=== PATIENT | female | born 1955 | race Caucasian/White ===

== ENCOUNTER 2019-02-23 09:31 | Outpatient (REF) | payer OTHER, SELFPAY ==
[2019-02-23 12:29] LABS: ALT 24 U/L (12-78); AST 21 U/L (15-37); Alkaline Phosphatase 83 U/L (46-116); Anion Gap 8.9 mmol/L (3-11); BUN 18 mg/dL (7-18); Bilirubin, Total 0.4 mg/dL (0.2-1.0); CO2 29.1 mmol/L (21.0-32.0); Calcium 9.5 mg/dL (8.5-10.1); Chloride 105 mmol/L (98-107); Glucose 75 mg/dL (70-100); Potassium 4.1 mmol/L (3.5-5.1); Sodium 143 mmol/L (136-145); TSH (W/Ref FT4) 2.39 uIU/mL (0.358-3.74); Total Protein 7.4 g/dL (6.4-8.2)
[2019-02-23 15:43] LABS: Calculated LDL 82; Cholesterol 156 mg/dL (50-200); HDL Cholesterol 63 mg/dL (40-60); Triglyceride 57 mg/dL (30-150)
[2019-02-23 16:05] LABS: Vitamin D 25 Total 68.4 ng/ml (30-100)
== END 2019-02-23 09:51 ==
LOC: NCHCN 09:31
PROVIDERS: PCP Nurse Practitioner; Visit Provider Nurse Practitioner
DX: R03.0 Elevated blood-pressure reading, without diagnosis of hypertension (principal); M81.0 Age-related osteoporosis without current pathological fracture
CPT/HCPCS: 80053; 80061; 82306; 83721; 84443

== ENCOUNTER 2019-03-12 00:30 | Outpatient (CLI) | payer OTHER, SELFPAY ==
--- NOTE | 2019-03-12 08:25 | DI.MAMMO_ITS ---
SYMPTOM/DIAGNOSIS: SCREENING, Z12.39 MAMMOGRAMS: Mammograms were interpreted according to the usual protocol including computer analysis with CAD system, tomosynthesis and C view imaging. Comparison is with the prior examinations. No suspicious masses or microcalcifications are seen. There is no definite evidence of malignancy. IMPRESSION: Negative mammogram. Routine screening is recommended. Category 1, breast density B. MQSA ASSESSMENT OF FINDINGS: Negative. Category 1. Patient will receive a letter notifying them of these results. BI-RADS category B. There are scattered areas of fibroglandular density.
== END 2019-03-12 00:50 ==
PROVIDERS: PCP Nurse Practitioner; Visit Provider Nurse Practitioner
DX: Z12.31 Encounter for screening mammogram for malignant neoplasm of breast (principal)
CPT/HCPCS: 77063; 77067

== ENCOUNTER 2020-04-05 20:43 | Outpatient (REF) | payer OTHER, SELFPAY ==
[2020-04-05 18:36] LABS: HCT 40.8 % (36.0-46.0); HGB 13.9 g/dL (11.2-15.7); MCH 31.8 pg (27.0-33.0); MCHC 34.1 % (32.0-36.0); MCV 93.4 fL (80-95); MPV 9.8 fL (8.0-11.0); Platelet Count 260 10^3/uL (130-400); RBC 4.37 10^6/uL (3.93-5.22); RDW 12.3 % (11.7-14.6); RDW-SD 42.6 fL
[2020-04-05 19:11] LABS: ALT 22 U/L (14-59); AST 17 U/L (15-37); Albumin 3.9 g/dL (3.4-5.0); Alkaline Phosphatase 70 U/L (46-116); BUN 17 mg/dL (7-18); Bilirubin, Total 0.4 mg/dL (0.2-1.0); CREATININE 0.82 mg/dL (0.55-1.02); Calcium 9.1 mg/dL (8.5-10.1); Chloride 106 mmol/L (98-107); Glucose 88 mg/dL (74-106); Potassium 4.5 mmol/L (3.5-5.1); Sodium 141 mmol/L (136-145); TSH (W/Ref FT4) 2.19 uIU/mL (0.36-3.74); Total Protein 6.9 g/dL (6.4-8.2)
[2020-04-06 08:38] LABS: Abs Immature Grans 0.01 10^3/uL (0.0-0.06); Absolute Basophil Count 0.02 10^3/uL (0.0-0.2); Absolute Eosinophil Count 0.09 10^3/uL (0.0-0.7); Absolute Lymphocyte Count 0.97 10^3/uL (1.2-3.4); Absolute Monocyte Count 0.41 10^3/uL (0.1-0.8); Absolute Neutrophil Count 2.43 10^3/uL (1.2-6.7); Basophils % 0.5; Eosinophils % 2.3; Immature Grans % 0.3; Lymphocytes % 24.7; Monocytes % 10.4; Neutrophils % 61.8
== END 2020-04-05 21:03 ==
LOC: NCHCN 20:43
PROVIDERS: PCP Nurse Practitioner Family; Visit Provider Nurse Practitioner Family
DX: R00.2 Palpitations (principal); N39.0 Urinary tract infection, site not specified; R68.89 Other general symptoms and signs
CPT/HCPCS: 80053; 85027; 87077; 84443; 85007; 87086; 87186

== ENCOUNTER 2020-04-11 03:09 | Outpatient (CLI) | payer OTHER, SELFPAY ==
--- NOTE | 2020-05-05 09:21 | ZIOP_ITS ---
Date of service: 05/05/20 Time of Service: 09:21 [employer] Referring Provider:: Dr Heraclio Fox Indications:: Palpitations Note: The patient was monitored for a total period of 11 days, 9 hours for indication of palpitations Predominant rhythm was sinus. Average heart rate was 84 bpm. Minimum heart rate was 57 and maximum 164 There were very rare ventricular ectopic beats and one couplet There were very rare atrial premature beats There were 3 atrial runs ranging from 8 beats in duration up to 24 seconds. These appeared asymptomatic Patient symptoms correlated with sinus rhythm, sinus tachycardia
== END 2020-04-11 03:29 ==
PROVIDERS: PCP Nurse Practitioner Family; Visit Provider Nurse Practitioner Family
DX: R00.2 Palpitations (principal); I49.3 Ventricular premature depolarization; I49.1 Atrial premature depolarization
CPT/HCPCS: 0296T

== ENCOUNTER 2020-09-05 19:02 | Outpatient (REF) | payer OTHER, SELFPAY ==
[2020-09-06 21:24] LABS: COVID-19 RT-PCR Result NEGATIVE (Negative)
== END 2020-09-05 19:22 ==
LOC: NCHCN 19:02
PROVIDERS: PCP Nurse Practitioner Family; Visit Provider Nurse Practitioner Family
DX: J02.9 Acute pharyngitis, unspecified (principal)
CPT/HCPCS: U0003

== ENCOUNTER 2020-10-17 01:36 | Outpatient (CLI) | payer OTHER, SELFPAY ==
[2020-10-18 11:51] LABS: COVID-19 RT-PCR UVMMC Result Negative (Negative)
== END 2020-10-17 01:37 | disposition home or self-care (01) ==
LOC: LBO 01:36
PROVIDERS: PCP Nurse Practitioner Family; Visit Provider Family Medicine
DX: Z20.828 Contact with and (suspected) exposure to other viral communicable diseases (principal); Z01.818 Encounter for other preprocedural examination
CPT/HCPCS: U0003

== ENCOUNTER 2020-10-20 00:42 | Outpatient (CLI) | payer OTHER, SELFPAY ==
--- NOTE | 2020-10-20 09:00 | ETT_ITS ---
APPROVED REPORT Exam: Exercise Treadmill Patient Location: Out-Patient Room/Bed: Stress Nurse: Kira Long RN Ordering Provider:SUSIEParag MATHEWS, Contact Number: [phone] BMI: 27.45 Baseline Rhythm: Sinus Rhythm Indications: Recurrent palpitations Medical History Medical History: Sciatica Cardiac Medications: celebrex, wellbutrin Allergies: NKA Cardiac Risk Factors: Family hx Previous Cardiac Procedures: None Pretest Chest Pain Characteristics: None Exercise History: Sedentary Physical Disabilities: None Lung Sounds: Clear to auscultation Heart Sounds: Regular Stress Test Details Test: Exercise stress testing was performed using a Woody protocol. Rest Stress HR Resting HR Supine: 79 bpm Max Heart Rate (APMHR): 158 bpm Resting HR Standin bpm Target HR (85% APMHR): 134 bpm Max HR Achieved: 152 bpm % of APMHR: 96 Recovery HR: 99 bpm HR response to stress: Normal HR response to stress BP Resting BP Supine: 144/98 mmHg Resting BP Standin/92 mmHg Max BP: 178/80 mmHg Recovery BP: 150/88 mmHg BP response to stress: Normal blood pressure response to stress. ECG Resting ECG: Sinus Rhythm Ectopy: None Stress ECG: Sinus Tachycardia ST Change: No significant ST segment changes noted Arrhythmia: None Recovery ECG: Sinus Rhythm Recovery ST Change: No significant ST segment changes noted Recovery Arrhythmia: None Clinical Reason for Termination: Fatigue, back pain Stress Symptoms: General Fatigue Exercise duration: 7 min55 sec Highest Stage Reached: Stage 3: 3.4 mph at 14% grade. Exercise capacity: 10.02 METs Tapia Treadmill Score: 8 Rate Pressure Product: [id number] Stress ECG Conclusion 1. The patient exercised for 8 minutes (10 METS). Exercise was stopped due to fatigue. 2. The patient's blood pressure and heart rate augmented as expected with exercise. 3. There were no symptoms suggestive of ischemia. 4. There is no evidence of ischemia on the ECG portion exam. Tapia Treadmill Score is 8 which is Low risk.
== END 2020-10-20 00:43 ==
LOC: DI 00:42
PROVIDERS: PCP Nurse Practitioner Family; Visit Provider Nurse Practitioner
DX: R00.2 Palpitations (principal); Z01.810 Encounter for preprocedural cardiovascular examination
CPT/HCPCS: 93017

== ENCOUNTER 2020-10-20 00:45 | Outpatient (CLI) | payer OTHER, SELFPAY ==
--- NOTE | 2020-10-20 08:26 | DI.MAMMO_ITS ---
EXAM: MG MAMMO SCREENING CLINICAL HISTORY: SCREENING, Z12.39, FAMILY H/O BREAST CA,Z80.3. TECHNIQUE: Bilateral full field digital CC and MLO mammographic images were obtained with 3D tomosyn thesis and utilizing computer aided detection (CAD). COMPARISON: Prior mammograms dating back to 2014, the most recent being July 2019. FINDINGS: No new significant radiograph findings in the right breast. In the left breast there are microcalcif ications in the upper-outer quadrant which are slowly increasing but remain benign appearance. No new spiculated masses. There is no significant architectural distortion nor skin thickening-retr action. IMPRESSION: Benign findings. No radiographic evidence of malignancy. BI-RADS Category 2 - Benign Findings Breast Density - Category B - Scattered areas of fibroglandular density Breast density Category C or D implies that the patient has dense breast tissue. Dense breast tissue can make it harder to find cancer on a mammogram. Dense breast tissue is also associated with an incr eased risk of breast cancer. This information about the result of the mammogram report was provided to the patient to raise their awareness. Use this report when you speak with the patient about their risks for breast cancer, which includes their family history. At that time, you may recommend additional screening tests (Ultrasoun d or MRI) as these tests may add significant information. A negative radiographic report should not delay biopsy if a dominant or clinically suspicious mass is present. Up to ten percent of cancers are not identified on mammography. A negative report may reinforce clinical impression. Adenosis and dense breasts may obscure an underlying neoplasm. False positive reports average 6 to 10%. Patient will receive a letter notifying them of these results.
== END 2020-10-20 00:46 ==
LOC: DI 00:45
PROVIDERS: PCP Nurse Practitioner Family; Visit Provider Nurse Practitioner
DX: Z12.31 Encounter for screening mammogram for malignant neoplasm of breast (principal); Z80.3 Family history of malignant neoplasm of breast
CPT/HCPCS: 77063; 77067

== ENCOUNTER 2021-06-07 02:11 | Outpatient (CLI) | payer OTHER, SELFPAY ==
[2021-06-07 09:26] LABS: Source Nasal/Nares
[2021-06-07 12:04] LABS: COVID-19 PCR Negative (Negative)
== END 2021-06-07 02:12 | disposition home or self-care (01) ==
LOC: LBO 02:12
PROVIDERS: PCP Nurse Practitioner Family; Visit Provider Surgery
DX: Z20.822 Contact with and (suspected) exposure to COVID-19 (principal); Z01.818 Encounter for other preprocedural examination
CPT/HCPCS: 87635

== ENCOUNTER 2021-06-09 10:02 | Day surgery (SDC) | payer OTHER, SELFPAY ==
--- NOTE | 2021-06-08 21:48 | W.COLOREPORT ---
Colonoscopy Report Date of procedure: 06/09/21 Pre-op diagnosis general: hx of polyps Surgeon: Marichuy Barnett Anesthesia Type: General:No Airway Prep: Miralax/Dulcolax Procedure Description: After informed consent was obtained the patient was taken to the procedure room and placed in a left decubitous position. Monitors were applied and a time out was done. The patients name, date of , procedure, allergies to medications and metal in their body was reviewed. The patient was then sedated. Once sedated and comfortable a rectal exam was done. External exam was normal. Internal exam revealed a normal sphincter tone and no palpable masses. Patient still had formed stool in her colon and visualization was extremely difficult. The scope continued to become clogged with vegetable matter. It is unclear whether it reached the cecum or the right flexure. The procedure was abandoned for patient safety. No large masses were visualized today. The colon was obscured by liquid stool that coated the aldridge and fluid filled the lumen by at least 50%. There was also at least 25% of the stool is still formed. Patient should have a repeat scope with a 2-day prep. She does have a longstanding history of constipation The patient tolerated the procedure well and there were no immediate complications. Follow up: The patient should follow up in the office in 2 weeks time.
--- NOTE | 2021-06-08 21:49 | ENDO_ITS ---
Date of service: 06/09/21 Endoscopy Report DATE OF PROCEDURE: 06/09/21 PRE-OP DIAGNOSIS: globus sensation POST-OP DIAGNOSIS: other (hiatal hernia) SURGEON: Marichuy Barnett ANESTHESIA TYPE: General:No Airway ESTIMATED BLOOD LOSS: 1 PATHOLOGY: other COMPLICATIONS: None DISPOSITION: same day PROCEDURE DESCRIPTION: After informed consent was obtained the patient was take to the procedure room and placed in a supine position. Monitors were applied and a time out was done. The patients name, date of , procedure type, allergies to medications and metal in their body was reviewed. A bite block was placed and the patient was sedated. Once sedated and comfortable the gastroscope was advanced through the oropharynx which was grossly normal into the esophagus. The proximal and mid-esophagus were normal. In the distal esophagus there was no: Esophageal erosion, varices, diverticula or stricture apparent. The scope was advanced into the stomach and through the pylorus into the 3rd portion of the duodenum. The duodenum was noted to be normal. Biopsies were done, all specimens are retrieved and no bleeding is noted the scope was retracted back into the stomach and biopsies were done to rule out H. pylori. There were ulcers or gastritis ulcers. The scope was retroflexed. The cardia and fundus were noted to be normal. There ia a patulous hiatus. There is no slight signs of any esophageal sliding. The scope was retracted back into the esophagus and biopsies were done of the GE junction to rule out Schaefer's. The Z line was regular. The scope was removed and the patient was woken up and taken back to [facility] in stable condition. She has a mildly patulous hiatus. She has a slight hiatal hernia. Otherwise things looked pretty unremarkable. Biopsies were taken. All specimens are retrieved and no bleeding is noted. Follow up: 2 weeks to review biopsy results, see if she tolerates the new PPI, and to reschedule colonoscopy.
--- NOTE | 2021-06-08 21:50 | PDOC.DSDIS_ITS ---
Discharge Plan Disposition Patient Disposition: HOME Condition: Good Discharge Details Reason For Visit: stomach and colon scope Attending Provider: Marichuy Barnett Primary Care Provider: Dimple Lamar Home Meds and New Rx's Prescriptions: New pantoprazole [Protonix] 40 mg tablet,delayed release (DR/EC) 40 mg PO DAILY Qty: 30 RF: 12 Continued cholecalciferol (vitamin D3) [Vitamin D3] 1,000 UNIT capsule 1,000 unit PO DAILY RF: 0 alprazolam [Xanax] 0.5 mg tablet 0.5 mg PO QHS PRNRF: 0 bupropion HCl [Wellbutrin SR] 150 mg tablet sustained-release 12 hr 150 mg PO BID RF: 0 sumatriptan succinate [Imitrex] 100 mg tablet See Rx Instructions PO .COMPLEX RF: 0 dbfbwaeztq-boccwpovfzzmz-dbxo 1 TAB tablet 2 tab PO PRN PRN (Reason: Headache) RF: 0 multivitamin 1 EACH capsule 1 tab PO DAILY RF: 0 Discontinued bisacodyl [Dulcolax (bisacodyl)] 5 mg tablet,delayed release (DR/EC) 5 mg PO ONCE Qty: 4 RF: 0 polyethylene glycol 3350 17 gram/dose powder 238 g PO ONCE Qty: 238 RF: 0 Discharge Instructions Additional Instructions: DSU Colonoscopy Post- Op Instructions Instructions for Everyone who is given Anesthesia: For your safety, please do the following for the next twenty-four (24) hours: *Do Not operate a motor vehicle (car, truck, motorcycle, etc.) *Do Not drink alcoholic beverages or use any recreational drugs for the first 24 hours or while taking pain medications. The medications in your body may have a reaction that can be dangerous. *Do Not make any important decisions or sign any important papers. Findings: Stomach: small hiatal hernia Continue with lifestyle modifications: no alcohol, tobacco products, Aspirin or NSAID's (ibuprofen, Motrin, Naprosyn, aleve, etc), soda pop/any carbonated beverages, caffeine (including tea & chocolate), and acidic foods, (tomatoes, citrus, onions, peppermints) spicy or fried/fatty foods. Do not lie down for 30 minutes after eating, and do not eat 2 hours prior to bedtime. Avoid wearing tight fitting clothing/ belts Rx- protonix Colon: prep was incomplete and will need to repeat w/ a 2-day prep. Follow up: Dr. Barnett in 2 wk 1. No lifting over 20 pounds or strenuous activity for the first 24 hours after your procedure. After 24 hours there are no restrictions on your activity but you may feel fatigued for a few days. 2. After you arrive home you may have a light meal and return to your normal diet as you can tolerate it without feeling sick to your stomach. 3. You may have a bloated, gaseous feeling in your belly (abdomen) after a colonoscopy. Passing gas and belching will help. Walking or lying down on your left side with your knees flexed may relieve the discomfort. Call the office at [phone] (Office) or [phone] (Hospital) right away if you notice any of the following: a.Vomiting of blood or ?coffee ground stools?. b.Rectal bleeding 1Tbsp, blood clots or continuous bleeding. c.Severe belly (abdominal) pain. d.A hard distended belly (abdomen) and an inability to pass gas. 4. Please don?t expect to have a normal BM (bowel movement) for 2-3 days after your procedure. 5. If there are questions regarding the findings of your procedure, please contact your doctor 6. If you are unable to contact your doctor with a problem, contact the hospital at [phone]. 7. Continue all your regular medications unless directed otherwise. I understand the above instructions and have no questions. Signature of Patient or Adult Escort Name of Responsible Adult Escort Signature of Nurse Date/Time Activity:: see above Diet:: see above Discharge Orders Discharge Orders: Discharge Order (Routine); Ordered 06/09/21 Ordered By: Marichuy Barnett DS: Diagnosis Discharge Diagnosis (1) Hiatal hernia: Status: Chronic
[2021-06-09 10:20] VITALS: BP 174/74; PULSE 75; RESP 16; TEMP 36.5; O2SAT 99
--- NOTE | 2021-06-09 10:27 | W.ANESPRE ---
General Info Date of Service Date Performed: 06/09/21 Height: 5 ft 5 in Weight: 71.3 kg Body Mass Index (BMI): 26.2 Surgical Procedure: Operation Date: 06/09/21 10:35 Proposed Procedures Side Surgeon p Colonoscopy/Gastroscopy Marichuy Barnett, DO Meds Allergies and Home Medications Allergies Allergy/AdvReac Type Severity Reaction Status Date / Time No Known Allergies Allergy Verified 06/09/21 10:24 Home Medication Medication Instructions Recorded aanmxwxcpy-xrsdnjzyfslpe-oarx 2 tab PO PRN PRN 07/22/13 multivitamin 1 tab PO DAILY 06/08/15 cholecalciferol (vitamin D3) 1,000 unit PO DAILY 09/23/15 [Vitamin D3] alprazolam 0.5 mg tablet 0.5 mg PO QHS PRN 11/30/20 bupropion HCl 150 mg tablet,12 hr 150 mg PO BID 11/30/20 sustained-release sumatriptan succinate 100 mg tablet See Rx Instructions PO .COMPLEX 11/30/20 bisacodyl 5 mg tablet,delayed 5 mg PO ONCE #4 tab 05/18/21 release polyethylene glycol 3350 17 238 g PO ONCE #238 g 05/18/21 gram/dose oral powder Current Visit Medications: Current Medications Generic Name Dose Route Start Last Admin Trade Name Freq PRN Reason Stop Dose Admin Ringer's Solution 1,000 mls @ 80 mls/hr 06/09/21 06:00 IV 07/08/21 23:59 INFUSION SUPRIYA IV Miscellaneous Supplies 1 each 06/09/21 06:00 Iv Access IV 07/08/21 23:59 DIRECTED SUPRIYA Sodium Chloride 0 ml 06/09/21 06:00 Normal Saline Flush 10 Ml Syr IV 07/08/21 23:59 PRN PRN Sodium Chloride 0 ml 06/09/21 06:00 Normal Saline 10 Ml Vial IJ 07/08/21 23:59 DIRECTED PRN Sterile Water 0 ml 06/09/21 06:00 Water,Injection,Sterile 10 Ml Vial IJ 07/08/21 23:59 DIRECTED PRN PFSH Active Problems Active Problems: Problem Status Onset Code Screening for colon cancer Z12.11 Globus sensation R09.89 Postnasal drip R09.82 Migraine G43.909 Cervicalgia M54.2 Tinnitus H93.19 Tinea pedis B35.3 At risk for sleep apnea Z91.89 Dysphagia R13.10 Medical History Medical History Anxiety At risk for sleep apnea Cervicalgia Constipation Depression Dysphagia Family history of breast cancer Family history of coronary arteriosclerosis GERD (gastroesophageal reflux disease) Hip pain, right Impingement syndrome of left shoulder Migraine Obesity Osteopenia Palpitations Pt. states this was 2020-pt. had work-up which came back negative. PT. states since then palpatations have been non existent. Preop examination Preoperative cardiovascular examination Sciatica Screening for breast cancer Tinea pedis Tinnitus Surgical History Surgical History Appendectomy Cholecystectomy History of left hip replacement Pt states it is a Right total hip replacement Ligation of fallopian tube Tobacco Smoking/Tobacco Use Status: Never Alcohol Alcohol Intake: current Alcohol intake frequency: a few times a week Alcohol type: wine Substance Use Substance use: Never Substance use type: does not use Vital Signs and Lab Results Vital Signs Most Recent Vital Signs in EMR: Most Recent Vital Signs Temp Pulse Resp BP Pulse Ox 36.5 C 75 16 174/74 H 99 06/09/21 10:20 06/09/21 10:20 06/09/21 10:20 06/09/21 10:20 06/09/21 10:20 Lab Results Blood Type / Crossmatch: No Data to Display Complete Blood Count: No Data to Display Complete Metabolic Panel: No Data to Display Liver Function Panel: No Data to Display Coagulation Panel: No Data to Display Cardiac Panel: No Data to Display Arterial Blood Gas: No Data to Display Venous Blood Gas: No Data to Display Pancreas Panel: No Data to Display Thyroid Panel: No Data to Display Infectious Disease: Coronavirus (COVID-19)(PCR) Negative (Negative) 06/07/21 08:39 06/07/21 Coronavirus 2019 Source Nasal/Nares 06/07/21 08:39 06/07/21 Blood Cultures: No Data to Display Toxicology Panel: No Data to Display Imaging and Studies Imaging and Studies Stress Test Summary: DATE/TIME OF SERVICE: 10/20/20 ADMITTING PROVIDER: SANTHOSH PORTILLO MD Exam: Exercise Treadmill Indications: Recurrent palpitations Stress ECG Conclusion 1. The patient exercised for 8 minutes (10 METS). Exercise was stopped due to fatigue. 2. The patient's blood pressure and heart rate augmented as expected with exercise. 3. There were no symptoms suggestive of ischemia. 4. There is no evidence of ischemia on the ECG portion exam. Tapia Treadmill Score is 8 which is Low risk. Anesthesia Assessment and Plan Anesthesia History Personal History: No History of Anesthesia Complications Family History: No Family History of Anesthesia Complications Exercise Tolerance Exercise Tolerance: Metabolic Equivalents>4 Pertinent Negatives Pertinent Negatives: No Symptoms of GERD Cardiac & Pulmonary Exam Cardiac Exam: Normal S1/S2 Heart Sounds Pulmonary Exam: Clear Bilateral Breath Sounds Airway Exam Known Difficult Airway: No Mallampati Class: 2 Mouth Opening: Normal (> 3cm) Thyromental Distance: Greater than 3 cm Neck Range of Motion: Full ROM Neck Circumference: Normal Teeth Condition: Normal Dentition ASA Classification ASA Score: ASA 2 Emergency Case?: No NPO Status NPO Status: NPO Clears >2 hours, Solids >8 hours Anesthesia Plan Resuscitation Status: Full Code Anesthesia Technique: General Anesthesia Airway Planned: Natural Airway Monitors Used: Standard Monitors
[2021-06-09 10:32] VITALS: BMI 26.2
[2021-06-09] MEDS: Lactated Ringers 1,000 ML 80 ML IV (10:34)
--- NOTE | 2021-06-09 11:57 | BOWEL_PTH ---
PATIENT: Cesilia Pierce LOC: [facility] U#:[id number] AGE/SX: 65/F ROOM: RE06/09/[address]: Marichuy Barnett : 1955 BED: DIS: 06/09/2021 SPEC #: [id number] RECD: 06/09/21 15:24 STATUS: BELLA REZay #: [id number] RAUL: 06/09/21 11:[address]: Marichuy Barnett DEPT: Surgical Specimen RECD BY: Diane Calderón ENTERED: 06/09/21 15:27 SP TYPE: Bowel OTHR DR: Dimple Lamar Tissues: 1 - BIOPSY BOWEL 2 - BIOPSY BOWEL 3 - STOMACH BIOPSY 4 - ESOPHAGUS BIOPSY 5 - ESOPHAGUS BIOPSY Procedures: GROSS AND MICRO LEVEL 4 Comments: [id number]
[2021-06-09 12:25] VITALS: BP 136/67; PULSE 76; RESP 18; TEMP 36.1; O2SAT 96
--- NOTE | 2021-06-09 12:27 | W.ANESPOSTOP ---
Postoperative Evaluation Date, Time and Location Date Performed: 06/09/21 Time Performed: 12:27 Patient Location: Day Surgery Unit Vital Signs Most Recent Imported Vital Signs: Most Recent Vital Signs Temp Pulse Resp BP Pulse Ox 36.1 C L 76 18 136/67 96 06/09/21 12:25 06/09/21 12:25 06/09/21 12:25 06/09/21 12:25 06/09/21 12:25 Most Recent Manually Entered Vital Signs: Adult Blood Pressure: 136/67 Heart Rate: 76 Respirations: 18 Oxygen Saturation (%): 96 Temperature (C): 36.1 C Pain Score (0-10 Scale): 0 Pain Score Most Recent Pain Score: Most Recent Pain Score Pain Level 0 06/09/21 12:25 Assessment Mental Status: Arousable with meaningful communication Airway and Respiratory Function: Patent airway with normal (patient baseline) respiratory exam Cardiovascular Function: Hemodynamically Stable Hydration Status: Adequately Hydrated Nausea & Vomiting: No Nausea or Vomiting Pain: Pt. Denies Any Pain Peripheral Nerve Block: Patient did not receive a nerve block
[2021-06-09 12:29] VITALS: BP 136/67; PULSE 76; RESP 18; TEMPC 36.1; O2SAT 96
[2021-06-09 13:00] VITALS: BP 156/88; PULSE 77; RESP 18; TEMP 36.4; O2SAT 98
== END 2021-06-09 14:15 | disposition home or self-care (01) ==
PROVIDERS: PCP Nurse Practitioner; Visit Provider Surgery
PROC: (CPT 43239; principal; 2021-06-09 10:30)
DX: K44.9 Diaphragmatic hernia without obstruction or gangrene (principal); Z12.11 Encounter for screening for malignant neoplasm of colon; Z86.010 Personal history of colon polyps; K59.00 Constipation, unspecified
CPT/HCPCS: 43239; 45378; 88305; J2704

== ENCOUNTER 2021-11-01 18:45 | Outpatient (REF) | payer BC, SELFPAY ==
[2021-11-01 19:39] LABS: HGB 13.7 g/dL (11.2-15.7); MCH 30.9 pg (27.0-33.0); MCHC 33.4 % (32.0-36.0); MCV 92.6 fL (80-95); MPV 9.8 fL (8.0-11.0); Platelet Count 253 10^3/uL (130-400); RBC 4.43 10^6/uL (3.93-5.22); RDW 11.9 % (11.7-14.6); WBC 8.55 10^3/uL (4.4-10.8)
[2021-11-01 19:54] LABS: ALT 30 U/L (14-59); AST 24 U/L (15-37); Albumin 4.1 g/dL (3.4-5.0); Alkaline Phosphatase 87 U/L (46-116); Anion Gap 9.1 mmol/L (3-11); BUN 18 mg/dL (7-18); Bilirubin, Total 0.4 mg/dL (0.2-1.0); CO2 27.9 mmol/L (21.0-32.0); CREATININE 0.8 mg/dL (0.55-1.02); Calcium 9.3 mg/dL (8.5-10.1); Chloride 103 mmol/L (98-107); Glucose 87 mg/dL (74-106); Lipase 59 U/L (73-393); Potassium 4.2 mmol/L (3.5-5.1); Sodium 140 mmol/L (136-145); Total Protein 7.4 g/dL (6.4-8.2)
[2021-11-01 21:05] LABS: Bilirubin Negative (Negative); Blood Trace-intact (Negative); Clarity Clear (Clear); Glucose 250 mg/dL (Negative); Ketones Negative (Negative); Leukocyte Esterase Trace (Negative); Nitrite Positive (Negative); Specific Gravity 1.025 (1.005-1.025); Urobilinogen 0.2 EU/dL (Up TO 0.2)
[2021-11-01 21:44] LABS: Bacteria Many HPF (Negative); C & S Indicated? Yes; Casts Negative LPF (Negative); Crystals Negative HPF (Negative); Epithelial Cells Negative HPF (Negative); Mucus Negative (Negative); Other Cells Negative (Negative); RBC Negative HPF (0-2)
== END 2021-11-01 18:46 | disposition home or self-care (01) ==
LOC: NCHCN 18:45
PROVIDERS: PCP Nurse Practitioner; Visit Provider Nurse Practitioner Family
DX: K21.9 Gastro-esophageal reflux disease without esophagitis (principal); K59.00 Constipation, unspecified; R10.10 Upper abdominal pain, unspecified; R14.0 Abdominal distension (gaseous)
CPT/HCPCS: 80053; 83690; 85027; 87077; 81003; 81015; 87086; 87186

== ENCOUNTER → 2022-05-29 01:31 | Outpatient (CLI) | payer BC, SELFPAY ==
--- NOTE | 2022-05-29 08:37 | DI.MAMMO_ITS ---
Exam(s) MAMMO SCREENING EXAM: MAMMO SCREENING CLINICAL HISTORY: SCREENING, Z12.39, FAMILY H/O BREAST CA,Z80.3 TECHNIQUE: Bilateral full field digital CC and MLO mammographic images were obtained with 3D tomosyn thesis and utilizing computer aided detection (CAD). COMPARISON: Available for comparison. FINDINGS: Masses/Architectural Distortion: None seen. Microcalcifications: No suspicious pleomorphic-type are seen. Skin Thickening/Nipple Retraction: None. IMPRESSION: 1. No significant interval change with no specific features of malignancy noted. 2. Unless there is more urgent need, screening mammography is recommended, as per [employer] guidelines. BI-RADS Category 1 - Negative Breast Density - Category B - Scattered areas of fibroglandular density Breast density category C or D implies that the patient has dense breast tissue. Dense breast tissue is very common and is not abnormal but dense breast tissue can make it harder to find cancer on a ma mmogram. Also, dense breast tissue may increase their breast cancer risk. This information about the result of the mammogram report was provided to the patient to raise their awareness. Use this report when you speak with the patient about their risks for breast cancer, which includes their family hist ory. At that time, you may recommend for more screening tests (Ultrasound or MRI) as they might be us eful based on their risk. A negative radiographic report should not delay biopsy if a dominant or clinically suspicious mass is present. Up to ten percent of cancers are not identified on mammography. A negative report may reinforce clinical impression. Adenosis and dense breasts may obscure an underlying neoplasm. False positive reports average 6 to 10%. Patient will receive a letter notifying them of these results.
== END ==
PROVIDERS: PCP Nurse Practitioner; Visit Provider Nurse Practitioner Family
DX: Z12.31 Encounter for screening mammogram for malignant neoplasm of breast (principal); Z80.3 Family history of malignant neoplasm of breast
CPT/HCPCS: 77063; 77067

== ENCOUNTER 2023-02-06 10:16 | Outpatient (REF) | payer BC, SELFPAY ==
--- NOTE | 2023-02-06 09:00 | PAPFT_PTH ---
PATIENT: Cesilia Pierce LOC: [facility] U#:[id number] AGE/SX: 67/F ROOM: RE02/06/[address]: Cass Bermeo MD : 1955 BED: DIS: 02/06/2023 SPEC #: [id number] RECD: 02/06/23 17:56 STATUS: BELLA REZay #: [id number] RAUL: 02/06/23 09:[address]: Cass Bermeo DEPT: [facility] Cytology RECD BY: Diane Calderón ENTERED: 02/06/23 17:56 SP TYPE: PAPFT JEET DR: LIONEL RAMIRES NP Tissues: 1 - CX/ENDOCX FOR PAP SMEARS Procedures: PAP THIN PREP/[facility] Screening HPV DNA PROBE Comments: [id number]
== END 2023-02-06 10:17 | disposition home or self-care (01) ==
LOC: LBN 10:16
PROVIDERS: PCP Nurse Practitioner Family; Visit Provider Obstetrics & Gynecology
DX: Z12.4 Encounter for screening for malignant neoplasm of cervix (principal); Z11.51 Encounter for screening for human papillomavirus (HPV)
CPT/HCPCS: 88142; 87624

== ENCOUNTER 2023-02-13 20:02 | Outpatient (REF) | payer BC, SELFPAY ==
[2023-02-13 21:05] LABS: Abs Immature Grans 0.01 10^3/uL (0.0-0.06); Absolute Basophil Count 0.03 10^3/uL (0.0-0.2); Absolute Lymphocyte Count 1.54 10^3/uL (1.2-3.4); Absolute Monocyte Count 0.35 10^3/uL (0.1-0.8); Absolute Neutrophil Count 3.05 10^3/uL (1.2-6.7); Basophils % 0.6; HCT 40.1 % (36.0-46.0); HGB 13.6 g/dL (11.2-15.7); Immature Grans % 0.2; Lymphocytes % 30.3; MCH 31.6 pg (27.0-33.0); MCHC 33.9 % (32.0-36.0); MCV 93 fL (80-95); MPV 9.7 fL (8.0-11.0); Monocytes % 6.9; Platelet Count 247 10^3/uL (130-400); RBC 4.31 10^6/uL (3.93-5.22); RDW 11.8 % (11.7-14.6); RDW-SD 40.7 fL; WBC 5.08 10^3/uL (4.4-10.8)
[2023-02-13 21:40] LABS: ALT 23 U/L (14-59); AST 19 U/L (15-37); Albumin 3.9 g/dL (3.4-5.0); Alkaline Phosphatase 76 U/L (46-116); Anion Gap 8.5 mmol/L (3-11); BUN 19 mg/dL (7-18); Bilirubin, Total 0.4 mg/dL (0.2-1.0); CO2 28.5 mmol/L (21.0-32.0); CREATININE 0.8 mg/dL (0.55-1.02); Calculated LDL 80 mg/dL (<100); Chloride 103 mmol/L (98-107); Cholesterol 153 mg/dL (<200); Estimated GFR 81.72 (mL/min/1.73m2); Glucose 108 mg/dL (74-106); HDL Cholesterol 64 mg/dL (40-60); Potassium 3.8 mmol/L (3.5-5.1); Sodium 140 mmol/L (136-145); TSH (W/Ref FT4) 2.19 uIU/mL (0.36-3.74); Total Protein 7.2 g/dL (6.4-8.2); Triglyceride 48 mg/dL (<150)
== END 2023-02-13 20:03 | disposition home or self-care (01) ==
LOC: NCHCN 20:02
PROVIDERS: PCP Nurse Practitioner Family; Visit Provider Nurse Practitioner Family
DX: F41.8 Other specified anxiety disorders (principal); K21.9 Gastro-esophageal reflux disease without esophagitis; R03.0 Elevated blood-pressure reading, without diagnosis of hypertension; G43.909 Migraine, unspecified, not intractable, without status migrainosus; Z13.220 Encounter for screening for lipoid disorders
CPT/HCPCS: 80053; 80061; 84443; 85025

== ENCOUNTER 2023-02-18 09:44 | Day surgery (SDC) | payer BC, SELFPAY ==
--- NOTE | 2023-02-17 19:00 | ANES.PREOP_ITS ---
General Info Date of Service Date Performed: 02/18/23 Height: 5 ft 4 in Weight: 73.936 kg Body Mass Index (BMI): 27.9 Surgical Procedure: Operation Date: 02/18/23 11:20 Proposed Procedure Side Surgeon anna Zamora MD Meds Allergies and Home Medications Allergies Allergy/AdvReac Type Severity Reaction Status Date / Time No Known Allergies Allergy Verified 02/18/23 10:10 Home Medication Medication Instructions Recorded multivitamin 1 tab PO DAILY 06/08/15 cholecalciferol (vitamin D3) 25 1,000 unit PO DAILY 09/23/15 mcg (1,000 unit) capsule (Vitamin D3) alprazolam 0.5 mg tablet (Xanax) 0.5 mg PO QHS PRN 11/30/20 bupropion HCl 150 mg tablet,12 hr 150 mg PO BID 11/30/20 sustained-release (Wellbutrin SR) sumatriptan succinate 100 mg See Rx Instructions PO .COMPLEX 11/30/20 tablet (Imitrex) celecoxib 200 mg capsule (Celebrex) 200 mg PO DAILY 07/19/21 pantoprazole 40 mg tablet,delayed See Rx Instructions .Route 06/19/22 release .COMPLEX #30 tabs calcium carbonate 260 mg calcium 260 mg PO DAILY 02/06/23 (650 mg) chewable tablet citalopram 10 mg tablet 10 mg PO DAILY 02/06/23 estradiol 0.01% (0.1 mg/gram) 0.25 g vaginal DAILY #42.5 grams 02/06/23 vaginal cream Current Visit Medications: Current Medications Generic Name Dose Route Start Last Admin Trade Name Freq PRN Reason Stop Dose Admin Ringer's Solution 1,000 mls @ 80 mls/hr 02/18/23 06:00 IV 03/17/23 23:59 INFUSION SUPRIYA IV Miscellaneous Supplies 1 each 02/18/23 06:00 Iv Access IV 03/17/23 23:59 DIRECTED SUPRIYA Sodium Chloride 0 ml 02/18/23 06:00 Normal Saline Flush 10 Ml Syr IV 03/17/23 23:59 PRN PRN Sodium Chloride 0 ml 02/18/23 06:00 Normal Saline 10 Ml Vial IJ 03/17/23 23:59 DIRECTED PRN Sterile Water 0 ml 02/18/23 06:00 Water,Injection,Sterile 10 Ml Vial IJ 03/17/23 23:59 DIRECTED PRN PFSH Active Problems Active Problems: Problem Status Onset Code Hiatal hernia K44.9 GERD with esophagitis K21.00 Abdominal bloating R14.0 Abdominal pain R10.9 MIHIR (stress urinary incontinence, female) N39.3 Medical History Medical History Anterior epistaxis Anxiety At risk for sleep apnea Constipation Depression Dysphagia Family history of breast cancer mom had breast cancer in her 70s - no other family members Family history of coronary arteriosclerosis Hip pain, right Hx of adenomatous colonic polyps Impingement syndrome of left shoulder Migraine Obesity Osteopenia Palpitations Pt. states this was 2019-pt. had work-up which came back negative. PT. states since then palpatations have been non existent. Postnasal drip Recurrent bacterial cystitis Sciatica Tinea pedis Tinnitus Surgical History Surgical History Appendectomy Cholecystectomy History of colonoscopy (~06/2021) Attempted colo, procedure aborted due to incomplete prep. History of esophagogastroduodenoscopy (EGD) (~06/09/21) History of left hip replacement Pt states it is a Right total hip replacement Ligation of fallopian tube Tobacco Smoking/Tobacco Use Status: Never Alcohol Alcohol Intake: current Alcohol intake frequency: a few times a week Alcohol type: wine Substance Use Substance use: Never Substance use type: does not use Prental History History 2 Para 2 Hx # Term Pregnancies Multiple births Hx # Pregnancies Ectopic pregnancies AB induced Hx Number of Living Children AB spontaneous Past Pregnancies Del. Date GA/Weeks # Preg Succ Route Wgt Sex Labor Lgth Anesth esia Location Prov Complic 11/22/80 40 vaginal 3940.584 g Male [facility] 08/31/82 40 Yes vaginal 3628.739 g Female [facility] Vital Signs and Lab Results Vital Signs Most Recent Vital Signs in EMR: Temp Pulse Resp BP Pulse Ox 36.2 C L 74 18 181/74 H 96 02/18/23 10:14 02/18/23 10:14 02/18/23 10:14 02/18/23 10:29 02/18/23 10:14 Lab Results Blood Type / Crossmatch: No Data to Display Complete Blood Count: White Blood Count 5.08 10^3/uL (4.4-10.8) 02/13/23 15:20 Red Blood Count 4.31 10^6/uL (3.93-5.22) 02/13/23 15:20 Hemoglobin 13.6 g/dL (11.2-15.7) 02/13/23 15:20 Hematocrit 40.1 % (36.0-46.0) 02/13/23 15:20 Platelet Count 247 10^3/uL (130-400) 02/13/23 15:20 Complete Metabolic Panel: Sodium 140 mmol/L (136-145) 02/13/23 15:20 Potassium 3.8 mmol/L (3.5-5.1) 02/13/23 15:20 Chloride 103 mmol/L (98-107) 02/13/23 15:20 Carbon Dioxide 28.5 mmol/L (21.0-32.0) 02/13/23 15:20 BUN 19 mg/dL (7-18) H 02/13/23 15:20 Creatinine 0.8 mg/dL (0.55-1.02) 02/13/23 15:20 Est GFR (CKD-EPI 2020) 81.72 (mL/min/1.73m2) 02/13/23 15:20 Calcium 9.0 mg/dL (8.5-10.1) 02/13/23 15:20 Albumin 3.9 g/dL (3.4-5.0) 02/13/23 15:20 Glucose 108 mg/dL (74-106) H 02/13/23 15:20 Liver Function Panel: Alanine Aminotransferase (ALT/SGPT) 23 U/L (14-59) 02/13/23 15: 20 Aspartate Amino Transf (AST/SGOT) 19 U/L (15-37) 02/13/23 15:20 Coagulation Panel: No Data to Display Cardiac Panel: No Data to Display Arterial Blood Gas: No Data to Display Venous Blood Gas: No Data to Display Pancreas Panel: No Data to Display Thyroid Panel: Thyroid Stimulating Hormone (TSH) 2.19 uIU/mL (0.36-3.74) 02/13 15:20 Infectious Disease: No Data to Display Blood Cultures: No Data to Display Toxicology Panel: No Data to Display Imaging and Studies Imaging and Studies Study information below may be from another EMR and interpreted by another pr ovider. Please see original notes in EMR for more complete details. Stress Test Summary: DATE/TIME OF SERVICE: 10/20/20 ADMITTING PROVIDER: SANTHOSH PORTILLO MD Exam: Exercise Treadmill Indications: Recurrent palpitations Stress ECG Conclusion 1. The patient exercised for 8 minutes (10 METS). Exercise was stopped due to fatigue. 2. The patient's blood pressure and heart rate augmented as expected with exer cise. 3. There were no symptoms suggestive of ischemia. 4. There is no evidence of ischemia on the ECG portion exam. Tapia Treadmill Score is 8 which is Low risk. Anesthesia Assessment and Plan Anesthesia History Personal History: No History of Anesthesia Complications Family History: No Family History of Anesthesia Complications Exercise Tolerance Exercise Tolerance: Metabolic Equivalents>4 Cardiac & Pulmonary Exam Cardiac Exam: Normal S1/S2 Heart Sounds Pulmonary Exam: Clear Bilateral Breath Sounds Implantable Cardiac Device Does patient have a Pacemaker or an ICD?: No Airway Exam Known Difficult Airway: No Mallampati Class: 2 Mouth Opening: Normal (> 3cm) Thyromental Distance: Greater than 3 cm Neck Range of Motion: Full ROM Neck Circumference: Normal Teeth Condition: Normal Dentition ASA Classification ASA Score: ASA 2 Emergency Case?: No NPO Status NPO Status: NPO Clears >2 hours, Solids >8 hours Anesthesia Plan Resuscitation Status: Full Code Anesthesia Technique: General Anesthesia Airway Planned: Natural Airway Monitors Used: Standard Monitors Preoperative Comments:: 67 yo female for colo. Sig PMHx: GERD (pantoprazole - well controlled), anxiety, depression/anxiety, migraine, palpitations, never smoker, occ EtOH. Previous Anes: - c/g, prop, natural airway.
--- NOTE | 2023-02-17 20:36 | W.PM.DSUDISC ---
Date of service: 02/18/23 Time of Service: 11:59 Discharge Plan Disposition Patient Disposition: Home Condition: Good Discharge Details Reason For Visit: Screening colonoscopy Attending Provider: Juliocesar Zamora Primary Care Provider: LIONEL RAMIRES Home Meds and New Rx's Prescriptions: Continued celecoxib [Celebrex] 200 mg capsule 200 mg PO DAILY citalopram 10 mg tablet 10 mg PO DAILY calcium carbonate 260 mg calcium (650 mg) tablet,chewable 260 mg PO DAILY Patient Comments: 02/06/23- pt reports taking chewable viactive. estradiol 0.01 % (0.1 mg/gram) cream 0.25 g vaginal DAILY Qty: 42.5 3RF Rx Instructions: Apply around the urethral opening 2-3x/week cholecalciferol (vitamin D3) [Vitamin D3] 1,000 UNIT capsule 1,000 unit PO DAILY alprazolam [Xanax] 0.5 mg tablet 0.5 mg PO QHS PRN bupropion HCl [Wellbutrin SR] 150 mg tablet sustained-release 12 hr 150 mg PO BID sumatriptan succinate [Imitrex] 100 mg tablet See Rx Instructions PO .COMPLEX Rx Instructions: take 1 tab at onset of headache; if no relief, may repeat 1 tab after at least 2 hrs; max = 2 tabs/24 hrs PO pantoprazole 40 mg tablet,delayed release (DR/EC) See Rx Instructions .ROUTE .COMPLEX Qty: 30 12RF Dose Instruction: TAKE ONE TABLET BY MOUTH EVERY DAY Rx Instructions: TAKE ONE TABLET BY MOUTH EVERY DAY multivitamin 1 EACH capsule 1 tab PO DAILY Discontinued polyethylene glycol 3350 17 gram/dose powder 238 g PO ONCE Qty: 238 0RF Rx Instructions: take per colonoscopy instructions bisacodyl [Dulcolax (bisacodyl)] 5 mg tablet,delayed release (DR/EC) 5 mg PO ONCE Qty: 8 0RF Rx Instructions: take per colonoscopy instructions Discharge Instructions Instructions: Diverticulosis (GEN), Diverticulosis Diet (GEN), Colorectal Polyps (GEN) Additional Instructions: Caren, we were able to complete your colonoscopy today without any difficulty. You have a fair amount of sigmoid diverticulosis. Have attached some information here regarding general management of diverticular disease. I also found 1 polyp within your rectum. It was moderate in size. I removed it completely. I will be in touch when I have the results of the pathology report with my final recommendations 1. If tolerated, consume a soft, low fiber diet for 1-2 days. 2. Do not drive, drink alcohol, operate machinery, make critical decisions, or do activities that require coordination or balance for 24 hours. 3. Because air was put into your colon during the procedure, expelling air from your rectum (passing gas or farting) is normal. 4. You may not have a bowel movement for 1-3 days because of the colonoscopy prep. This is normal. 5. Go directly to the emergency room if you notice any of the following: Develop chills (warm to touch), or if you have a thermometer and your temperature is above 101 Difficulty breathing or difficultly swallowing Persistent vomiting Severe abdominal pain, other than gas cramps Severe chest pain Black, tarry stools Any bleeding ? exceeding one tablespoon 6. Call your physician if the site where your intravenous was started becomes red, swollen, painful, and warm to touch. 7. Your physician has reviewed your pre-procedure medications. Please continue to take those medications as previously ordered. You will be given specific information/education regarding any changes to your medications before leaving. Activity:: Activity as Tolerated Diet:: As Tolerated Discharge Orders Discharge Orders: Discharge Order (Routine); Ordered 02/17/23 Ordered By: Juliocesar Zamora DS: Diagnosis Discharge Diagnosis (1) Screening for colon cancer: Status: Inactive Asessment and Plan: Follow-up on polypectomy results
--- NOTE | 2023-02-17 20:40 | W.COLOREPORT ---
Date of service: 02/18/23 Time of Service: 11:57 Colonoscopy Report Date of procedure: 02/18/23 Pre-op diagnosis general: Screening colonoscopy Post-op diagnosis procedure note: other (Rectal polyp, diverticulosis) Procedure: Colonoscopy with polypectomy Surgeon: Juliocesar Zamora Anesthesia Type: General:No Airway Estimated blood loss (mL): 5 Pathology: other (Rectal polyp) Complications: None Disposition: same day Indications: Caren is a 67 year old woman who needs a screening colonscopy Prep: Miralax/Dulcolax Procedure Start Time: 11:10 Procedure End Time: 11:45 Retraction Time: 20 Findings: Diverticulosis, rectal polyp Procedure Description: After the induction of monitored anesthetic care, and with the patient in left lateral decubitus position, I began by performing an external anorectal exam.? Perineum and skin were normal, as was the anal verge.? There was no evidence of external hemorrhoids.? Next, I performed a digital rectal exam.? I did not appreciate any abnormal findings.? Next, I advanced a colonoscope into the rectal vault.? I performed retroflexion.? There is grade 1 internal hemorrhoids.? Using insufflation, I then advanced the colonoscope beyond the rectal folds and into the sigmoid colon before advancing towards the cecum.? The quality of the prep was adequate. There was some retained stool, but I was able to manipulate this and evacuate as much as possible. There was a fair amount of sigmoid diverticulosis.? The scope was noted to be in the cecum by identification of the ileocecal valve and appendiceal orifice.? I then began withdrawing the colonoscope using repeated irrigation as necessary for full evaluation of the colonic mucosa. ?Once the scope was withdrawn to the level of the rectum, great care was taken to examine portions of the rectal folds. At the top of the rectal vault, there was a 1 cm rectal polyp. It was pedunculated. I removed it with energized snare polypectomy. There was minimal bleeding. Finally, the scope was withdrawn and the patient was brought to the same-day surgery recovery unit as the anesthetic wore off. ?The findings and instructions were shared with the patient prior to discharge.
[2023-02-18 10:14] VITALS: BP 182/76; PULSE 74; RESP 18; TEMP 36.2; O2SAT 96
[2023-02-18 10:29] VITALS: BP 181/74
[2023-02-18 10:38] VITALS: BMI 27.9
[2023-02-18] MEDS: Lactated Ringers 1,000 ML 80 ML IV (10:46)
--- NOTE | 2023-02-18 11:45 | BOWEL_PTH ---
PATIENT: Cesilia Pierce LOC: [facility] U#:[id number] AGE/SX: 67/F ROOM: RE02/18/[address]: Juliocesar Zamora MD : 1955 BED: DIS: 02/18/2023 SPEC #: [id number] RECD: 02/18/23 12:34 STATUS: BELLA REQ #: [id number] RAUL: 02/18/23 11:[address]: Juliocesar Zamora DEPT: Surgical Specimen RECD BY: Diane Calderón ENTERED: 02/18/23 12:35 SP TYPE: Bowel OTHR DR: LIONEL RAMIRES NP Tissues: 1 - BIOPSY BOWEL Procedures: GROSS AND MICRO LEVEL 4 Comments: [id number]
[2023-02-18 11:49] VITALS: BP 146/62; PULSE 73; RESP 19; TEMP 36.2; O2SAT 96
--- NOTE | 2023-02-18 11:55 | W.ANESPOSTOP ---
Postoperative Evaluation Date, Time and Location Date Performed: 02/18/23 Time Performed: 11:55 Patient Location: Day Surgery Unit Vital Signs Most Recent Imported Vital Signs: Most Recent Vital Signs Temp Pulse Resp BP Pulse Ox 36.2 C L 74 18 181/74 H 96 02/18/23 10:14 02/18/23 10:14 02/18/23 10:14 02/18/23 10:29 02/18/23 10:14 Pain Score Most Recent Pain Score: Most Recent Pain Score Pain Level 0 02/18/23 10:14 Assessment Mental Status: Awake (Alert & Oriented to Patient Baseline) Airway and Respiratory Function: Patent airway with normal (patient baseline) respiratory exam Cardiovascular Function: Hemodynamically Stable Hydration Status: Adequately Hydrated Nausea & Vomiting: No Nausea or Vomiting Pain: Pt. Denies Any Pain Peripheral Nerve Block: Patient did not receive a nerve block
[2023-02-18 12:17] VITALS: BP 167/70; PULSE 71; RESP 18; TEMP 36.2; O2SAT 94
== END 2023-02-18 12:35 | disposition home or self-care (01) ==
PROVIDERS: PCP Nurse Practitioner Family; Visit Provider Surgery
PROC: 0DJD8ZZ Inspection of Lower Intestinal Tract, Via Natural or Artificial Opening Endoscopic (ICD-10-PCS; CPT 45378; principal; 2023-02-18 11:15)
DX: Z12.11 Encounter for screening for malignant neoplasm of colon (principal); D12.8 Benign neoplasm of rectum; K57.30 Diverticulosis of large intestine without perforation or abscess without bleeding
CPT/HCPCS: 45385; 88305; J2704

== ENCOUNTER → 2023-06-03 02:09 | Outpatient (CLI) | payer BC, SELFPAY ==
--- NOTE | 2023-06-03 08:00 | DI.MAMMO_ITS ---
Exam(s) MAMMO SCREENING EXAM: MAMMO SCREENING CLINICAL HISTORY: screening. TECHNIQUE: Bilateral full field digital CC and MLO mammographic images were obtained with 3D tomosyn thesis and utilizing computer aided detection (CAD). COMPARISON: Prior mammograms were reviewed. FINDINGS: There has been no significant change in the appearance and distribution of the fibroglandular tissue. Small benign-appearing group of microcalcifications in the upper-outer quadrant of the left breast is unchanged from prior mammograms. There are no new spiculated masses nor malignant appearing microcalcification groups. There is no significant architectural distortion nor skin thickening-retraction. IMPRESSION: No radiographic evidence of malignancy. BI-RADS Category 1 - Negative Breast Density - Category B - Scattered areas of fibroglandular density Breast density Category C or D implies that the patient has dense breast tissue. Dense breast tissue can make it harder to find cancer on a mammogram. Dense breast tissue is also associated with an incr eased risk of breast cancer. This information about the result of the mammogram report was provided to the patient to raise their awareness. Use this report when you speak with the patient about their risks for breast cancer, which includes their family history. At that time, you may recommend additional screening tests (Ultrasoun d or MRI) as these tests may add significant information. A negative radiographic report should not delay biopsy if a dominant or clinically suspicious mass is present. Up to ten percent of cancers are not identified on mammography. A negative report may reinforce clinical impression. Adenosis and dense breasts may obscure an underlying neoplasm. False positive reports average 6 to 10%. Patient will receive a letter notifying them of these results.
== END ==
PROVIDERS: PCP Nurse Practitioner Family; Visit Provider Obstetrics & Gynecology
DX: Z12.31 Encounter for screening mammogram for malignant neoplasm of breast (principal)
CPT/HCPCS: 77063; 77067

== ENCOUNTER 2024-03-24 10:54 | Outpatient (REF) | payer BC, SELFPAY ==
[2024-03-24 20:10] LABS: Bilirubin Negative (Negative); Blood Negative (Negative); Clarity Sl Cloudy (Clear); Glucose Negative (Negative); Ketones Negative (Negative); Leukocyte Esterase Small (Negative); Nitrite Negative (Negative); Urobilinogen 0.2 mg/dL (Up to 0.2); pH 6.5 (5-8)
[2024-03-24 20:16] LABS: Bacteria Many HPF (Negative); C & S Indicated? Yes; Casts Negative LPF (Negative); Crystals Negative HPF (Negative); Epithelial Cells Few HPF (Negative); Mucus Negative (Negative); RBC 0-2 HPF (0-2)
[2024-03-24 20:28] LABS: ALT 30 U/L (14-59); AST 26 U/L (15-37); Albumin 3.6 g/dL (3.4-5.0); Alkaline Phosphatase 71 U/L (46-116); Anion Gap 8.5 mmol/L (3-11); BUN 14 mg/dL (7-18); Bilirubin, Total 0.38 mg/dL (0.2-1.0); CO2 27.5 mmol/L (21.0-32.0); CREATININE 0.9 mg/dL (0.55-1.02); Calcium 8.7 mg/dL (8.5-10.1); Chloride 103 mmol/L (98-107); Estimated GFR 70.51 (mL/min/1.73m2); Glucose 109 mg/dL (74-106); Potassium 4.3 mmol/L (3.5-5.1); Sodium 139 mmol/L (136-145); TSH 3.05 uIU/Ml (0.36-3.74)
[2024-03-24 21:32] LABS: COMMENT (LAB VIEW ONLY) 19.47 mg/dL; PROTEIN < 6.0 mg/dL
[2024-03-24 21:34] LABS: COMMENT (LAB VIEW ONLY) 19.22 mg/dL; Microalb ug/mg Crea 24.5 ug/mg Cr
== END 2024-03-24 10:55 | disposition home or self-care (01) ==
LOC: NCHCN 10:54
PROVIDERS: PCP Nurse Practitioner Family; Visit Provider Nurse Practitioner Family
DX: I10 Essential (primary) hypertension (principal); R39.89 Other symptoms and signs involving the genitourinary system; R82.998 Other abnormal findings in urine
CPT/HCPCS: 80053; 87077; 81003; 81015; 82043; 82565; 82570; 84156; 84443; 87086; 87186

== ENCOUNTER 2024-10-06 13:59 | Outpatient (REF) | payer MEDICARE, SELFPAY ==
--- NOTE | 2024-10-06 11:40 | SKI_PTH ---
PATIENT: Cesilia Pierce LOC: [facility] U#:[id number] AGE/SX: 68/F ROOM: RE10/06/[address]: LIONEL RAMIRES NP : 1955 BED: DIS: 10/06/2024 SPEC #: [id number] RECD: 10/06/24 17:26 STATUS: BELLA FOSTER #: [id number] RAUL: 10/06/24 11:[address]: LIONEL RAMIRES DEPT: Surgical Specimen RECD BY: Diane Calderón Tissues: 1 - SKIN BIOPSY(SHAVE/PUNCH) Procedures: SKIN LEVEL 4 Comments: [id number]
== END 2024-10-06 14:00 | disposition home or self-care (01) ==
LOC: NCHCN 13:59
PROVIDERS: PCP Nurse Practitioner Family; Visit Provider Nurse Practitioner Family
DX: B07.8 Other viral warts (principal)
CPT/HCPCS: 88305

== ENCOUNTER → 2025-04-12 14:12 | Outpatient (BNVA) | payer MEDICARE, SELFPAY | PROVIDERS: PCP Nurse Practitioner Family; Referring Provider Nurse Practitioner Family; Visit Provider Podiatrist | DX: B35.1 Tinea unguium (principal); L60.3 Nail dystrophy; Q82.8 Other specified congenital malformations of skin; L84 Corns and callosities; M20.42 Other hammer toe(s) (acquired), left foot; M79.671 Pain in right foot; M79.672 Pain in left foot | CPT/HCPCS: 99214; 17110 ==

== ENCOUNTER 2025-04-26 03:04 | Outpatient (CLI) | payer MEDICARE, SELFPAY ==
--- NOTE | 2025-04-26 | ETT_ITS ---
APPROVED REPORT Exam: Exercise Treadmill Patient Location: Out-Patient Room/Bed: Stress Nurse: Trisha Blevins RN, Leanne Springer RN Ordering Provider:LIONEL RAMIRES, Contact Number: [phone] BMI: 26.43 Baseline Rhythm: Sinus Rhythm Indications: Chest tightness, chest pain, SOB Medical History Medical History: GERD, migraines, anxiety, fatigue, HTN, depression, osteopenia, recurrent UTIs, obesity Cardiac Medications: clonidine, lexapro, hctz, pantoprazole, propranolol, sumatriptan, valsartan Allergies: NKDA Cardiac Risk Factors: family hx, HTN, obesity Previous Cardiac Procedures: None Pretest Chest Pain Characteristics: None Exercise History: Physically active Physical Disabilities: none Lung Sounds: clear Heart Sounds: regular Stress Test Details Test: Exercise stress testing was performed using a Woody protocol. Rest Stress HR Resting HR Supine: 68 bpm Max Heart Rate (APMHR): 153 bpm Resting HR Standin bpm Target HR (85% APMHR): 130 bpm Max HR Achieved: 135 bpm % of APMHR: 88 Recovery HR: 75 bpm HR response to stress: Normal HR response to stress BP Resting BP Supine: 142/78 mmHg Resting BP Standin/88 mmHg Max BP: 180/50 mmHg Recovery BP: 140/68 mmHg BP response to stress: Normal blood pressure response to stress. ECG Resting ECG: Sinus Rhythm Stress ECG: Sinus Tachycardia ST Change: No significant ST segment changes noted Arrhythmia: Rare PVCs, rare PACs Recovery ECG: Sinus Rhythm Recovery ST Change: No significant ST segment changes noted Recovery Arrhythmia: rare PAC Clinical Reason for Termination: Fatigue, patient request Stress Symptoms: General Fatigue Exercise duration: 6 min42 sec Highest Stage Reached: Stage 2: 2.5 mph at 12% grade. Exercise capacity: 8.14 METs Angina Score: none Rate Pressure Product: 20633 Stress ECG Conclusion 1. Resting electrocardiogram showed low voltage but was otherwise normal 2. Patient exercised on the Woody protocol completed workload of 8 METS 3. Normal heart rate and blood pressure response to exercise. The patient achieved 88% of maximal predicted heart rate for age 4. There was no electrocardiographic evidence of myocardial ischemia 5. There were no significant dysrhythmias Stress Test Summary STAGE Time (mins) Speed (mph) Grade (%) HR BP SpO2 SYMPTOMS METS Supine 68 142/78 94 Standing 75 144/88 95 1 3 1.7 10 111 140/64 4.5 2 6 2.5 12 119 160/74 7 3 9 3.4 14 135 10 1 min recovery 135 160/74 3 min recovery 74 160/72 6 min recovery 75 140/68 95 Patient requested to stop test secondary to fatigue and sob. Recovered quickly back to baseline. Ambulated on own accord without any further complaints upon her departure.
== END 2025-04-26 03:24 ==
LOC: DI 03:05
PROVIDERS: PCP Nurse Practitioner Family; Visit Provider Internal Medicine Cardiovascular Disease
DX: R07.89 Other chest pain (principal)
CPT/HCPCS: 93016; 93018; 93017

== ENCOUNTER → 2025-08-17 13:42 | Outpatient (BNVA) | payer MEDICARE, SELFPAY | PROVIDERS: PCP Nurse Practitioner Family; Referring Provider Nurse Practitioner Family; Visit Provider Podiatrist | DX: M79.671 Pain in right foot (principal); M79.672 Pain in left foot; L60.3 Nail dystrophy; B35.1 Tinea unguium; M20.42 Other hammer toe(s) (acquired), left foot; L84 Corns and callosities | CPT/HCPCS: 99213 ==